=== PATIENT | female | born 1990 | race Asian ===

== ENCOUNTER 2019-04-28 08:52 | Emergency (ER) | payer OTHER ==
[~2019-04-28] VITALS: Wt 60.0 kg
[2019-04-28 08:56] VITALS: BP 130/85; PULSE 69; RESP 18
[2019-04-28] MEDS ORDERED: ONDANSETRON (ODT) 4 MG TAB ODT STA (09:15)
[2019-04-28] MEDS ORDERED: ACET500C5 PO (11:46)
[2019-04-28] MEDS ORDERED: ONDA4TAB14 PO (11:46)
--- NOTE | 2019-04-29 06:35 | ERD ---
ER Documentation Chief Complaint Chief Complaint headpain and nausea after hitting head on tree yesterday. no neuro def HPI Patient is a 28-year-old female with past medical history of migraine headaches, presents the ER for concerns of a headache. Patient states 2 days ago she was playing with her kids outside when she accidentally hit a tree with the left side of her head. Patient states initially has had some pain to the left side of her head. She denies any loss of consciousness. She denies any episodes of nausea, vomiting, acute confusion, excessive sleepiness after injury. Patient states this morning she woke up with a headache. Patient states she is vomited 2-3 times. Patient does have a history of migraines and she is not sure if this current headache as well as her migraines. Patient reports associated photophobia and phonophobia. Patient denies any unilateral weakness, slurred speech, difficulty ambulating. Patient denies any chest pain or shortness of breath. Patient states that she did take Tylenol for her pain however she vomited it. Patient is brought in by her . Patient denies any fevers or chills. Patient denies any neck pain. ROS All systems reviewed and are negative except as per history of present illness. Medications Home Meds Active Scripts Ondansetron (Ondansetron Odt) 4 Mg Tab.rapdis, 4 MG PO Q6H PRN for NAUSEA AND/OR VOMITING, #10 TAB Prov:ENEDINA CARUSO PA-C 04/28/19 Acetaminophen* (Tylophen*) 500 Mg Capsule, 1 CAP PO Q6H PRN for PAIN AND OR ELEVATED TEMP, #20 CAP Prov:ENEDINA CARUSO PA-C 04/28/19 Allergies Allergies: Coded Allergies: No Known Drug Allergies (Verified Allergy, Unknown, 04/28/19) PMhx/Soc Medical and Surgical Hx: pt denies Medical Hx, pt denies Surgical Hx FmHx Family History: No diabetes Physical Exam Vitals Vital Signs Date Temp Pulse Resp B/P (MAP) Pulse Ox O2 O2 Flow FiO2 Time Delivery Rate 04/28/19 98.4 69 18 130/85 99 08:56 (100) Physical Exam GENERAL: Well-developed, well-nourished female. Appears in no acute distress. Speaking in full sentences. HEAD: Normocephalic, atraumatic. No obvious scalp lacerations or abrasions noted. Left occipital scalp is tender to palpation. EYES: Pupils are equally reactive bilaterally. EOMs grossly intact. No conjunctival erythema. No periorbital ecchymosis or swelling. No mastoid ecchymosis or tenderness noted bilaterally. ENT: Moist mucous membranes. No uvula deviation. No kissing tonsils. NECK: Supple. No meningismus. Normal range of motion of the neck. No cervical midline tenderness. LUNG: Clear to auscultation bilaterally. No rhonchi, wheezing, rales or coarse breath sounds. HEART: Regular rate and rhythm. No murmurs, rubs or gallops. EXTREMITIES: Equal pulses bilaterally. No peripheral clubbing, cyanosis or edema. No unilateral leg swelling. NEUROLOGIC: Alert and oriented x3, cooperative. Mood and affect appropriate to situation. Cranial nerves II through XII are grossly intact. Normal speech. Motor exam: 5/5 strength in upper and lower extremities. Sensory exam: Sensation intact to light touch on all four extremities. Cerebellar function exam: Rapid alternating movements intact. No dysmetria on evywrp-km-qcol and wdcu-gm-rwhx test. Steady gait. No pronator drift. Equal sales lead generator strength bilaterally. SKIN: Normal color. Warm and dry. No rashes or lesions. Results 24 hrs Laboratory Tests Test 04/28/19 09:24 POC Beta HCG, Qualitative NEGATIVE Current Medications Medications Dose Sig/Piyush Start Time Status Last (Trade) Ordered Route PRN Stop Time Admin Dose Reason Admin Ondansetron 4 mg ONCE STAT 04/28/19 DC 04/28/19 HCl (Zofran ODT 09:15 04/28/19 09:19 Odt) 09:16 Procedures/MDM ED COURSE: The patient was stable throughout ED course. I kept the patient and/or family informed of laboratory and diagnostic imaging results throughout the ED course. DIAGNOSTIC IMAGING: Read by radiologist. Patient: RUDI MORALES : 1990 Age: 28 Sex: F MR #: [id number] DOS: 04/28/1915 Ordering MD: ENEDINA CARUSO PA-C Location: [facility] Room/Bed: PROCEDURE: CT HEAD NON CONTRAST CLINICAL INDICATION: Trauma with headache TECHNIQUE: Utilizing the multi-slice spiral CT scanner, multiple images were obtained through the brain without intravenous contrast. Automatic exposure control was utilized as dose lowering technique.DICOM images available One of more of the following dose reduction techniques were utilized: -automatic exposure control.-adjustment of the mA and/or kV according to patient size. -Use of iterative reconstruction technique. Radiation Dose: CTDI is 38.72 mGy. DLP is 699.25 mGy-cm. COMPARISON: None FINDINGS: Ventricular system and brain parenchyma appear unremarkable. No acute intracranial bleed, midline shift, acute extra-axial collection noted. No abnormal calcifications seen. Bony calvarium and overlying soft tissues appear unremarkable. Bony calvarium and overlying soft tissues appear unremarkable. Visualized portions of the paranasal sinuses are clear IMPRESSION: NO ACUTE INTRACRANIAL BLEED NOTED. IF FURTHER WORKUP IS DESIRED, FOLLOW-UP MRI MAY BE HELPFUL. RPTAT: [facility] Physician Rukhsana Date Time Electronically viewed and signed by Physician Rukhsana on 04/28/2019 11:42 MB/ CC: ENEDINA CARUSO PA-C [phone] PROCEDURES: None. MEDICATIONS GIVEN: Zofran Patient tolerated medication well with no adverse reactions. MEDICAL DECISION MAKING: This is a 28-year-old female, past medical history of migraine headaches, presents the ER for concerns of a headache. Patient states 2 days ago she was playing with her children at the park when she did accidentally hit a tree. Patient is not sure if her head pain is related to this injury or due to her migraines. Patient denies any loss of conscious. Patient denies any episodes of nausea, vomiting, acute confusion or excessive sleepiness immediately after the injury. Vital signs were reviewed. Patient was afebrile. Patient is not hypoxic. Full neurological exam was normal. Patient was given Zofran for her nausea. CT brain was unremarkable. Patient's current headache is likely due to her migraines. Low suspicion for intracranial hemorrhage, skull fracture, meningitis, encephalitis, CO2 poisoning, benign intracranial hypertension, intracranial mass, sinusitis, TIA or CVA. Patient was nontoxic, [id number] prior to discharge. PRESCRIPTIONS: Zofran, Tylenol DISCHARGE: At this time, patient is stable for discharge and outpatient management. I have encouraged the patient to hydrate well. I have instructed the patient to follow- up with his/her primary care physician in 1-2 days. If symptoms persist, patient may need to see a specialist for further examinations and testing. I have instructed the patient to promptly return to the ER at any time for any new or worsening symptoms including increased increased pain, fever, nausea, vomiting, numbness, neck stiffness, visual changes, weakness or LOC. The patient and/or family expressed understanding of and agreement with this plan. All questions were answered. Home care instructions were provided. Disclaimer: Inadvertent spelling and grammatical errors are likely due to EHR/dictation software use and do not reflect on the overall quality of patient care. Also, please note that the electronic time recorded on this note does not necessarily reflect the actual time of the patient encounter. Departure Diagnosis: Primary Impression: Headache Headache type: unspecified Headache chronicity pattern: unspecified pattern Intractability: not intractable Qualified Codes: R51 - Headache Additional Impression: Head injury Encounter type: initial encounter Qualified Codes: S09.90XA - Unspecified injury of head, initial encounter Condition: Fair Patient Instructions: Self-Care for Headaches Additional Instructions: Call your primary care doctor TOMORROW for an appointment during the next 1-2 days.See the doctor sooner or return here if your condition worsens before your appointment time. ENEDINA CARUSO PA-C Apr 29, 2019 06:35
== END 2019-04-28 11:50 | disposition home or self-care (01) ==
LOC: FTE 08:52
DX: S09.90XA Unspecified injury of head, initial encounter (principal); R51 Headache; W22.8XXA Striking against or struck by other objects, initial encounter; Y92.9 Unspecified place or not applicable
CPT/HCPCS: 70450; 81025; Z7502; Z7610